=== PATIENT | female | born 1955 | race Caucasian/White ===

== ENCOUNTER 2020-01-04 09:49 | Outpatient (CLI) | payer MEDICARE, OTHER, SELFPAY ==
--- NOTE | 2020-01-04 | XR_ITS ---
WS: [id number] PROCEDURE: XR chest 2V* [id number] CLINICAL INFORMATION: PERSISTENT COUGH COMPARISON: None. FINDINGS: Heart: Normal cardiac silhouette. Lungs: Lungs are clear. No consolidation or pleural fluid. No acute pulmonary infiltrates. Bones: Mild thoracic curve convex left. XR/XR chest 2V* [id number] IMPRESSION: Normal chest
== END 2020-01-04 09:50 | disposition home or self-care (01) ==
LOC: RADOUTREAD 10:44
PROVIDERS: Family Provider Internal Medicine; Visit Provider Internal Medicine
DX: Z01.89 Encounter for other specified special examinations (principal)

== ENCOUNTER 2021-08-08 08:28 | Outpatient (CLI) | payer MEDICARE, SELFPAY ==
--- NOTE | 2021-08-08 08:34 | XR_ITS ---
WS: [id number] SCREENING DEXA SCAN [employer] [facility] CLINICAL INFORMATION: POSTMENOPAUSAL COMPARISON: None. FINDINGS: The L1-L4 bone mineral density measures 1.247 g/cm2. This corresponds to a T score score of 0.6 and Z score of 1.2. Left femoral neck bone mineral density measures 1.070 g/cm2. This corresponds to a T score of 0.5 and Z score of 1.1. Right femoral neck bone mineral density measures 1.083 g/cm2. This corresponds to a T score 0.6of and Z score of 1.2. Mean femoral neck bone mineral density measures 1.076 g/cm2. This corresponds to a T score of 0.5 and Z score of 1.2. XR/XR DEXA axial skeleton* [id number] IMPRESSION: Normal bone mineralization. Patient's FRAX calculated 10 year probability for major osteoporotic fracture i s 7.4 % and osteoporotic hip fracture is 0.5%.
== END 2021-08-08 08:29 | disposition home or self-care (01) ==
PROVIDERS: Visit Provider Internal Medicine
DX: Z78.0 Asymptomatic menopausal state (principal)
CPT/HCPCS: 77080

== ENCOUNTER 2021-09-11 09:03 | Outpatient (CLI) | payer MEDICARE, SELFPAY ==
--- NOTE | 2021-09-11 09:06 | MM_ITS ---
WS: [id number] Exam: [place] [id number] Date/Time of Exam: 09/11/2021 9:09 AM Reason For Exam: SCREENING VIEWS: MLO and CC views both breasts. Comparison made with prior exam of 12/03/2014, 12/24/2015, 07/29/2019.. Findings: There was no sign of mass, architectural distortion or suspicious calcification in either breast. Sc attered fibroglandular densities MM/[place] [id number] Impression: BI-RADS: 2-Benign FOLLOW-UP: 1 Year Follow-up This mammogram was also analyzed by the Computer Aided Detection System R2 Imag e Wire Rope Sling Maker.
== END 2021-09-11 09:04 | disposition home or self-care (01) ==
LOC: RADSHAW 09:05
PROVIDERS: PCP Internal Medicine; Visit Provider Internal Medicine
DX: Z12.31 Encounter for screening mammogram for malignant neoplasm of breast (principal)
CPT/HCPCS: 77067

== ENCOUNTER 2023-08-07 12:41 | Outpatient (CLI) | payer MEDICARE, OTHER, SELFPAY ==
--- NOTE | 2023-08-07 13:11 | MM_ITS ---
WS: [id number] BILATERAL 3D TOMOSYNTHESIS DIGITAL SCREENING MAMMOGRAPHY WITH CAD CLINICAL INFORMATION: SCREEN HISTORY: Screening mammogram. No current complaints. COMPARISON: 2020 TECHNIQUE: Bilateral CC and MLO views. FINDINGS: Scattered fibroglandular densities bilaterally. No suspicious focal mass, asymmetry, calcifications, or architectural distortion. No evidence of malignancy. IMPRESSION: MM/[place] [id number] BI-RADS: 1-Negative FOLLOW UP: 1 Year Follow-up Recommend return to annual screening mammography.
== END 2023-08-07 12:42 | disposition home or self-care (01) ==
PROVIDERS: PCP Internal Medicine; Visit Provider Physician Assistant
DX: Z12.31 Encounter for screening mammogram for malignant neoplasm of breast (principal)
CPT/HCPCS: 77063; 77067

== ENCOUNTER 2024-01-23 23:46 | Emergency (ER) | payer MEDICARE, OTHER, SELFPAY ==
[2024-01-23 23:50] VITALS: BP 203/75; PULSE 70; RESP 18; TEMP 36.4
--- NOTE | 2024-01-24 00:09 | XRR_ITS ---
PROCEDURE INFORMATION: Exam: XR Right Shoulder Exam date and time: 01/24/2024 12:33 AM Age: 68 years old Clinical indication: Pain; Shoulder; Right; Additional info: Fall injury TECHNIQUE: Imaging protocol: Radiologic exam of the right shoulder. Views: 2 or more views. COMPARISON: CR (CHEST, ) 01/24/2024 12:31 AM FINDINGS: Bones/joints: Right anterior shoulder dislocation. Soft tissues: Normal. XR/XR shoulder RT min 2V* [id number] IMPRESSION: Right anterior shoulder dislocation.
--- NOTE | 2024-01-24 00:09 | XRR_ITS ---
PROCEDURE INFORMATION: Exam: XR Right Elbow Exam date and time: 01/24/2024 12:41 AM Age: 68 years old Clinical indication: Pain; Elbow; Right; Additional info: Fall injury TECHNIQUE: Imaging protocol: Radiologic exam of the right elbow. Views: 3 or more views. COMPARISON: CR (CHEST, ) 01/24/2024 12:33 AM FINDINGS: Bones/joints: Normal. Soft tissues: Normal. XR/XR elbow RT min 3V* [id number] IMPRESSION: No acute findings.
--- NOTE | 2024-01-24 00:09 | XRR_ITS ---
PROCEDURE INFORMATION: Exam: XR Chest Exam date and time: 01/24/2024 12:31 AM Age: 68 years old Clinical indication: Pain; Right-sided; Additional info: Injury, fall TECHNIQUE: Imaging protocol: Radiologic exam of the chest. Views: 1 view. COMPARISON: CR XR chest 2V* [id number] 03/15/2022 9:25 AM FINDINGS: Lungs: No focal consolidation. Pleural spaces: Unremarkable. No pleural effusion. No pneumothorax. Heart/Mediastinum: Unremarkable. No cardiomegaly. Bones/joints: Right anterior shoulder dislocation. XR/XR chest 1V portable [id number] IMPRESSION: 1. Right anterior shoulder dislocation. 2. No focal consolidation.
--- NOTE | 2024-01-24 00:10 | ED_ITS ---
Documented by User: SARAH Rider 01/24/24 01:12 HPI - Extremity Problem General: Chief complaint: Extremity Injury, Upper Stated complaint: Rt Shoulder Injury Time Seen by Provider: 01/24/24 00:04 History of Present Illness: 68-year-old female comes in today for co mplaints of right shoulder pain. Patient also reports numbness into her hand on the right side. Patient reports that she had gone outside to check on something and she slipped causing her to roll down a embankment. Incident occurred about 45 minutes ago. Patient is alert and oriented. 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 Patient appears in moderate to severe pain. Review of Systems General: Reports: 10 or more systems reviewed and unremarkable except in HPI and below Musc: Reports: extremity pain and joint pain Physical Exam Const: COMMON NORMALS: alert HENMT: COMMON NORMALS: normocephalic HEAD & SCALP: normocephalic Neck/C-Spine: COMMON NORMALS: full ROM Resp: COMMON NORMALS: normal respiratory effort and clear to auscultation bilaterally AUSCULTATION: clear to auscultation bilaterally Cardio: COMMON NORMALS: regular rate RATE: regular rate Back/Pelvis: COMMON NORMALS: thoracic and lumbar spine normal to inspection Extremity: RIGHT UPPER EXTREMITY: Yes shoulder joint (Decreased range of motion due to pain) and Yes clavicle (No obvious deformity) Neuro: SENSORIUM/ORIENTATION: Yes alert Skin: COMMON NORMALS: turgor normal GENERAL SKIN EXAM: turgor normal Course Vital Signs: Vital signs: Vital Signs Temperature 97.6 F 01/24/24 02:59 Pulse Rate 77 01/24/24 02:59 Respiratory Rate 16 01/24/24 02:59 Blood Pressure 141/54 01/24/24 02:59 Pulse Oximetry 97 01/24/24 02:59 Oxygen Delivery Me thod Room Air 01/24/24 01:55 Oxygen Flow Rate 2 01/24/24 01:42 MDM - Extremity (Nontraumatic) Medical Decision Making 68-year-old female comes in today for injury to the right shoulder. On exam patient has tenderness in the anterior aspect of the shoulder. No obvious dislocation is noted. Distal pulses are intact. Patient reports some numbness in the hand. Patient has muscle tension to the right trapezius. No spinal tenderness is noted on palpation. Patient moves neck without difficulty. Patient ambulates without difficulty. Vital signs are normal except for elevated blood pressure. Differential diagnosis includes not limited to AC joint separation, humeral fracture, dislocation of the shoulder, rotator cuff injury. 1243, right shoulder is dislocated. Reviewed exam with Dr. Garcia who will assume care of patient for reduction. Lab Data Radiology Impressions Chest X-Ray 01/24/24 00:09 IMPRESSION: 1. Right anterior shoulder dislocation. 2. No focal consolidation. Elbow X-Ray 01/24/24 00:09 IMPRESSION: No acute findings. Shoulder X-Ray 01/24/24 01:07 IMPRESSION: Anatomic alignment of the right glenohumeral joint status post reduction. XR interpretation done by ED provider, pending radiology final review Discharge Plan Discharge Patient Disposition: Home Clinical Impression: Anterior dislocation of right shoulder Qualifiers: Encounter type: initial encounter Qualified Code(s): S43.014A - Anterior dislocation of right humerus, initial encounter Accidental fall Qualifiers: Encounter type: initial encounter Qualified Code(s): W19.XXXA - Unspecified fall, initial encounter Condition: Stable Prescriptions: New hydrocodone-acetaminophen 5-325 mg tablet 1 tab PO Q8H PRN (Reason: pain) Qty: 14 0RF ondansetron HCl 4 mg tablet 4 mg PO Q6H PRN (Reason: nausea and vomiting) Qty: 14 0RF Discharge Orders: Discharge ED (Routine); Ordered 01/24/24 Ordered By: Tommy Garcia Referrals: Aleksandra Hoyt PA [Primary Care Provider] - Andrew Sheppard DO [Physician] - Discharge Diet: Usual diet Discharge Activity: Limit activity as instructed Patient Instructions: Opioid Safety, Pain Management Coding Level of Care Code ED Railway Shunter for Chg Fwd Documented by User: Tommy Garcia MD 01/24/24 06:13 HPI - Extremity Problem General: Chief complaint: Extremity Injury, Upper Stated complaint: Rt Shoulder Injury Time Seen by Provider: 01/24/24 00:04 Course ED course: PROCEDURE - shoulder reduction: RIGHT Informed consent obtained, after risks, complications and benefits explained and patient verbalized understanding of all information provided as related to the procedure. Time out completed per department/hospital policy. Verified correct patient, side, procedure, The patient was placed on the outsole beveler, current vital signs were obtained, supplemental oxygen was applied, continuous pulse oximetry was utilized, respiratory therapy was at bedside. This patient underwent a shoulder reduction. Utilizing Versed 2 mg and 75 mg of propofol intravenously for procedural sedation, I made the patient comfortable and then used gentle traction as well as abduction of the upper arm and counter traction, which then allow the shoulder to easily reduced back into place. Before and after the procedure the distal neurovascular status was intact. Capillary refills less than 3 seconds. The patient was placed in a sling for comfort. Post-procedure xray demonstrates successful reduction. Patient was provided anticipatory guidance and instructions regarding supportive care and the need for follow-up with their primary care physician or their orthopedist. Total time for procedure including recovery 15 minutes. PROCEDURE: PROCEDURAL SEDATION The risks and benefits of procedural sedation, as well as other alternatives were explained to the patient and/or guardian. The reason was to alleviate the patient's pain during the procedure. Some of the potential adverse reactions discussed were apnea ( stop breathing ), allergic reaction, vomiting, hypotension, and even possibly . Other possible alternatives were discussed and then informed consent was then obtained. The patient was made NPO, and has not recently had any large meals. The patient was placed on a monitor as well as end-tidal CO2 monitor, oxygen via nasal cannula. The vital signs are stable prior to the procedure. Prior to the start of the procedure the nurse and I performed a TIME OUT. We ensured that all the necessary equipment, including crash cart, defibrillator, airway box, and suction were readily available. Once we were agreeable to proceeding, I then gave the patient 75 mg of IV propofol and 2 mg of IV Versed. I continued to closely watch the patient's pulse oximeter, end-tidal CO2 monitor, vital signs, and outsole beveler for any abnormalities. The patient appeared to have adequate sedation and underwent the procedure well. After which, the patient was observed, to ensure that the patient was fully awake and was back to baseline. The intra-service time for this procedure was 15 minutes. Procedure note: Right shoulder sling I reviewed the radiographic examination and determined the need for stabilization via right upper extremity sling. A soft shoulder sling was utilized. The sling was ordered and placed by the nursing staff, under the direct supervision of myself (ER Physician. The patient's neurovascular status was evaluated and was intact before and after the application of the sling/splint. Capillary refill was less than 3 seconds before and after the application. The patient was provided a sling and the most appropriate anatomical and functional position at that time. Anticipatory guidance, return precautions and red flag precautions were provided to the patient and support person. The patient/support person was advised to contact the patient's primary care provider or Orthopedic provider to make a follow-up appointment for additional e valuation and treatment within the next 3-5 days. Vital Signs: Vital signs: Vital Signs Temperature 97.6 F 01/24/24 02:59 Pulse Rate 77 01/24/24 02:59 Respiratory Rate 16 01/24/24 02:59 Blood Pressure 141/54 01/24/24 02:59 Pulse Oximetry 97 01/24/24 02:59 Oxygen Delivery Me thod Room Air 01/24/24 01:55 Oxygen Flow Rate 2 01/24/24 01:42 MDM - Extremity (Nontraumatic) Medical Decision Making 68-year-old female comes in today for injury to the right shoulder. On exam patient has tenderness in the anterior aspect of the shoulder. No obvious dislocation is noted. Distal pulses are intact. Patient reports some numbness in the hand. Patient has muscle tension to the right trapezius. No spinal tenderness is noted on palpation. Patient moves neck without difficulty. Patient ambulates without difficulty. Vital signs are normal except for elevated blood pressure. Differential diagnosis includes not limited to AC joint separation, humeral fracture, dislocation of the shoulder, rotator cuff injury. 1243, right shoulder is dislocated. Reviewed exam with Dr. Garcia who will assume care of patient for reduction. I discussed the patient's history of present illness, physical exam findings, pertinent labs, pertinent radiographic exams and plan of care with the midlevel provider. I did personally have a [id number] evaluation and discussion with the patient regarding the plan of care and the need for further evaluation and treatment. Medical Records I reviewed the patient's medical records. Lab Data Radiology Impressions Chest X-Ray 01/24/24 00:09 IMPRESSION: 1. Right anterior shoulder dislocation. 2. No focal consolidation. Elbow X-Ray 01/24/24 00:09 IMPRESSION: No acute findings. Shoulder X-Ray 01/24/24 01:07 IMPRESSION: Anatomic alignment of the right glenohumeral joint status post reduction. Discharge Plan Discharge Patient Disposition: Home Clinical Impression: Anterior dislocation of right shoulder Qualifiers: Encounter type: initial encounter Qualified Code(s): S43.014A - Anterior dislocation of right humerus, initial encounter Accidental fall Qualifiers: Encounter type: initial encounter Qualified Code(s): W19.XXXA - Unspecified fall, initial encounter Condition: Stable Prescriptions: New hydrocodone-acetaminophen 5-325 mg tablet 1 tab PO Q8H PRN (Reason: pain) Qty: 14 0RF ondansetron HCl 4 mg tablet 4 mg PO Q6H PRN (Reason: nausea and vomiting) Qty: 14 0RF Discharge Orders: Discharge ED (Routine); Ordered 01/24/24 Ordered By: Tommy Garcia Referrals: Aleksandra Hoyt PA [Primary Care Provider] - Andrew Sheppard DO [Physician] - Discharge Diet: Usual diet Discharge Activity: Limit activity as instructed Patient Instructions: Opioid Safety, Pain Management Coding Level of Care Code ED Railway Shunter for Corby Pettit
[2024-01-24] MEDS: fentaNYL 50 mcg/mL INJ 2mL 100 MCG IVP (00:23)
[2024-01-24] MEDS: ondansetron 2 mg/ML SDV 2 mL 4 MG IVP ×2 (00:23→01:31)
[2024-01-24 00:26] VITALS: PULSE 75; RESP 16; O2SAT 98
[2024-01-24] MEDS: sodium chloride 0.9% 1,000 ML 999 ML IV (01:05)
--- NOTE | 2024-01-24 01:07 | XRR_ITS ---
PROCEDURE INFORMATION: Exam: XR Right Shoulder Exam date and time: 01/24/2024 1:36 AM Age: 68 years old Clinical indication: Pain; Elbow; Right; Patient HX: Post reduction; Additional info: Post-reduction TECHNIQUE: Imaging protocol: Radiologic exam of the right shoulder. Views: 1 view. COMPARISON: CR (CHEST, ) 01/24/2024 12:33 AM FINDINGS: Bones/joints: Anatomic alignment of the right glenohumeral joint status post reduction. Soft tissues: Normal. XR/XR shoulder RT 1V [id number] IMPRESSION: Anatomic alignment of the right glenohumeral joint status post reduction.
[2024-01-24 01:29] VITALS: BP 176/70; PULSE 80; RESP 16; O2SAT 100
[2024-01-24] MEDS: midazolam 1 mg/mL INJ 2 mL 2 MG IVP (01:33)
[2024-01-24] MEDS: propofol 10 mg/mL SDV 20 mL 150 MG IVP (01:34)
[2024-01-24 01:42] VITALS: BP 194/70; PULSE 83; RESP 20; O2SAT 96
[2024-01-24 01:47] VITALS: BP 140/52; PULSE 78; RESP 16; O2SAT 100
[2024-01-24 01:55] VITALS: BP 141/54; PULSE 77; RESP 16; O2SAT 97
--- NOTE | 2024-01-24 02:01 | PC.NURSE ---
Remaining 75 mg of propofol wasted with HARPAL Faye at 0200.
[2024-01-24 02:59] VITALS: BP 141/54; PULSE 77; RESP 16; TEMP 36.4; O2SAT 97
== END 2024-01-24 03:02 | disposition home or self-care (01) ==
PROVIDERS: Emergency Provider Internal Medicine; PCP Physician Assistant
DX: S43.014A Anterior dislocation of right humerus, initial encounter (principal); W17.81XA Fall down embankment (hill), initial encounter
CPT/HCPCS: 23650; 71045; 73020; 73030; 73080; 96361; 96374; 96375; 96376; 99152; 99285; J2250; J2405; J2704; J3010; J7030

== ENCOUNTER 2024-02-17 08:27 | Outpatient (CLI) | payer MEDICARE, OTHER, SELFPAY ==
--- NOTE | 2024-02-17 08:36 | MR_ITS ---
WS: [id number] MRI RIGHT SHOULDER NONCONTRAST TECHNIQUE: Sagittal T2, coronal T1, T2 and proton density imaging. Axial gradient PDE imaging. CLINICAL INFORMATION: DISLOCATION R SHOULDER COMPARISON: None. FINDINGS: Some images graded by patient motion. Advanced degenerative arthritis of the AC joint. Mild downsloping acromion. Moderate narrowing of the subacromial space. Subacromial subdeltoid fluid. Small joint effusion. No visualized acute Hill-Sach s lesion. Cystic degenerative change at the greater tuberosity. Normal bone marrow signal in the pablo oid. Degenerative fraying of the glenoid labrum. Chronic thinning with high-grade tear of the distal anterior fibers of the supraspinatus. Chronic thi nning with intrasubstance tears involving the infraspinatus. Small insertional tear at the distal inf raspinatus. Teres minor appears intact. Diffuse thickening with tendinopathy involving the subscapularis which ap pears grossly intact. Biceps tendon appears intact within the bicipital groove. Diffuse tendinopathy involving the intra-articular biceps tendon with T2 signal abnormality. IMPRESSION: 1. Advanced degenerative arthritis AC joint with mild downsloping acromion. Moderate narrowing of th e subacromial space. 2. Advanced chronic thinning of the distal supraspinatus and infraspinatus tendons distally. 3. High-grade tears involving the anterior superior supraspinatus fibers. 4. High-grade intrasubstance tears involving the infraspinatus tendon with a tiny distal insertional tear 5. Diffuse thickening with tendinopathy involving the subscapularis tendon which appears intact. 6. No visualized Hill-Sachs lesion. Degenerative cystic change along the greater tuberosity. 7. Biceps tendon intact within the bicipital groove. 8. Diffuse tendinopathy involving the intra-articular biceps tendon. 9. Normal bone marrow signal in the glenoid.
== END 2024-02-17 08:28 | disposition home or self-care (01) ==
LOC: RAD 08:27
PROVIDERS: PCP Physician Assistant; Visit Provider Orthopaedic Surgery
DX: S43.004A Unspecified dislocation of right shoulder joint, initial encounter (principal); M75.101 Unspecified rotator cuff tear or rupture of right shoulder, not specified as traumatic; M19.011 Primary osteoarthritis, right shoulder; X58.XXXA Exposure to other specified factors, initial encounter
CPT/HCPCS: 73221